=== PATIENT | male | born 1935 | race Caucasian/White ===

== ENCOUNTER 2017-06-28 16:19 | Emergency (ER) | payer MEDICARE, OTHER ==
[~2017-06-28] VITALS: Ht 182.9 cm; Wt 102.0 kg
[~2017-06-28 16:19] MED LIST: ALBU8.5H8 IH; ASPI81TA30 PO; ATOR20TA PO; FLUT1DIS4 INH; FURO-149 PO; METO25TA6 PO; OMEP-50 PO; OSEL30CA PO; PRE5T; RANI150C4 PO; SPIIN INH
[2017-06-28] MEDS ORDERED: NYSPWD TP (17:35)
[2017-06-28 17:41] VITALS: BP 112/62
== END 2017-06-28 17:42 | disposition home or self-care (01) ==
LOC: ER 16:20
DX: T85.9XXA Unspecified complication of internal prosthetic device, implant and graft, initial encounter (principal); E78.00 Pure hypercholesterolemia, unspecified; I10 Essential (primary) hypertension; Z79.82 Long term (current) use of aspirin
CPT/HCPCS: 99284; A4315

== ENCOUNTER 2017-07-26 05:19 | Emergency (ER) | payer MEDICARE, OTHER ==
[~2017-07-26] VITALS: Ht 185.4 cm; Wt 101.1 kg
[~2017-07-26 05:19] MED LIST changes: +NYSPWD TP
[2017-07-26 09:29] LABS: COLOR,URINE Yellow (Yellow); GLUCOSE, URINE Negative (Neg); KETONES,URINE Negative (Neg); LEUKOCYTE ESTERASE ,URINE Moderate (Neg); NITRITES, URINE Positive (Neg); OCCULT BLOOD,URINE Moderate (Neg); PROTEIN,URINE 100 mg/dl (Neg)
[2017-07-26 09:31] LABS: CLARITY,URINE CLOUDY (Clear); UA COLLECTION TYPE FOLEY CATH
[2017-07-26 09:42] LABS: BACTERIA,URINE 3+ /HPF (Neg); SQUAMOUS EPITHELIAL CELL,UR NONE SEEN /LPF (FEW); WBC CLUMPS,URINE MODERATE /HPF (NEGATIVE); WBC,URINE 50-100 /HPF (0-4)
[2017-07-26] MEDS ORDERED: CLOT15CR73 TP (10:23)
[2017-07-26] MEDS ORDERED: CEPH-572 PO (10:23)
[2017-07-26 10:43] VITALS: BP 145/65
== END 2017-07-26 10:45 | disposition home or self-care (01) ==
LOC: ER 05:20
DX: T83.9XXA Unspecified complication of genitourinary prosthetic device, implant and graft, initial encounter (principal); T83.511A Infection and inflammatory reaction due to indwelling urethral catheter, initial encounter; N39.0 Urinary tract infection, site not specified; B37.2 Candidiasis of skin and nail; E78.00 Pure hypercholesterolemia, unspecified; I11.0 Hypertensive heart disease with heart failure; I25.2 Old myocardial infarction; I50.9 Heart failure, unspecified; Z79.899 Other long term (current) drug therapy
CPT/HCPCS: 81001; 87077; 87088; 87186; 99284; A4310; A4344

== ENCOUNTER 2018-02-05 12:04 | Inpatient (IN) | payer MEDICARE, OTHER ==
[~2018-02-05] VITALS: Ht 188 cm; Wt 101.3 kg
[~2018-02-05 12:04] MED LIST changes: +CLOT15CR73 TP
[2018-02-05] MEDS ORDERED: normal saline 1000ML IV soln IVB ONE (12:25)
[2018-02-05] MEDS ORDERED: diltiazem 30mg tablet PO ONE (12:35)
[2018-02-05] MEDS ORDERED: diltiazem 5mg/ml 5ml inj. IV ONE (12:50)
[2018-02-05 13:05] LABS: BASOPHILS # (AUTO) 0.2 X10'3 (0-0.2); BASOPHILS % (AUTO) 1.5 % (0-1); EOSINOPHILS # (AUTO) 0.2 X10'3 (0-0.9); EOSINOPHILS % (AUTO) 1.1 % (0-6); HEMATOCRIT 36.2 % (42.0-52.0); LYMPHOCYTES # (AUTO) 0.7 X10'3 (1.1-4.8); LYMPHOCYTES % (AUTO) 4.3 % (21-51); MEAN CORPUSCULAR HEMOGLOBIN 30.3 PG (27.0-31.0); MEAN CORPUSCULAR VOLUME 91.6 FL (78-98); MEAN PLATELET VOLUME 8.5 FL (7.4-10.4); MONOCYTES # (AUTO) 1.5 X10'3 (0-0.9); MONOCYTES % (AUTO) 10.1 % (2-12); NEUTROPHILS # (AUTO) 12.6 X10'3 (1.8-7.7); PLATELET COUNT 259 X10'3 (140-440); RED BLOOD COUNT 3.95 X10'6 (4.70-6.10); RED CELL DISTRIBUTION WIDTH 13.7 % (11.5-14.5); WHITE BLOOD COUNT 15.2 X10'3 (4.5-11.0)
[2018-02-05 13:13] LABS: ALANINE AMINOTRANSFERASE 25 U/L (12-78); ALBUMIN 2.9 G/DL (3.4-5.0); ALBUMIN/GLOBULIN RATIO 0.7 (1.1-1.5); ALKALINE PHOSPHATASE 75 IU/L (46-116); ANION GAP 10 (8-16); ASPARTATE AMINO TRANSFERASE 18 U/L (10-37); BLOOD UREA NITROGEN 35 MG/DL (7-18); BUN/CREATININE RATIO 13.8 (5.4-32.0); CALCIUM 8.4 MG/DL (8.5-10.1); CHLORIDE 102 MMOL/L (99-107); CREATININE 2.54 MG/DL (0.60-1.10); GLUCOSE 115 MG/DL (70-104); POTASSIUM 3.9 MMOL/L (3.5-5.1); SODIUM 137 MMOL/L (135-145); TOTAL CARBON DIOXIDE 25.1 MMOL/L (24-32); TOTAL PROTEIN 6.8 G/DL (6.4-8.2); eGFR 24 ML/MIN
[2018-02-05 13:36] LABS: D-DIMER 1.88 MG/L FEU (0-0.50)
[2018-02-05] MEDS ORDERED: CefTRIAXone 2gm/D5W 50ml 50 ML IV ONE (13:50)
[2018-02-05] MEDS ORDERED: azithromycin/NS 500mg/250ml 250 ML IV ONE (13:50)
[2018-02-05] MEDS ORDERED: heparin 10,000 units/1 ML INJ IV PRN ×2 (13:50→14:55)
[2018-02-05] MEDS ORDERED: heparin 10,000 units/1 ML INJ IV ONE ×2 (13:50→14:55)
[2018-02-05] MEDS ORDERED: acetaminophen 325mg tablet PO PRN (14:55)
[2018-02-05] MEDS ORDERED: magnesium hydroxide 30ml (MOM) UD suspension PO PRN (14:55)
[2018-02-05] MEDS ORDERED: magnesium Cl slow-release 64mg tablet PO PRN (14:55)
[2018-02-05] MEDS ORDERED: ondansetron/PF 4mg/2ml inj IV PRN (14:55)
[2018-02-05] MEDS ORDERED: magnesium 4gm in 100ml NS 100 ML IV PRN (14:55)
[2018-02-05] MEDS ORDERED: potassium Cl 20 mEq SR tablet PO PRN ×2 (14:55)
[2018-02-05] MEDS ORDERED: potassium Cl 40MEQ/NS 500ml 500 ML IV PRN ×2 (14:55)
[2018-02-05] MEDS ORDERED: ipratropium/albuterol 3ml nebule NEB PRN ×2 (14:55→20:00)
[2018-02-05] MEDS ORDERED: magnesium 1gm/100ml D5W IVPB 100 ML IV PRN (14:55)
[2018-02-05 15:29] LABS: INR 1.1 INR; PROTHROMBIN TIME 11.2 SECONDS (9.0-12.0)
[2018-02-05] MEDS: normal saline 1000ml 1,000 ML IV SCH (15:42)
[2018-02-05 19:00] VITALS: BP 121/45
[2018-02-05] MEDS ORDERED: FLO0.4C PO (19:10)
[2018-02-05] MEDS ORDERED: MULT-1180 (19:11)
[2018-02-05] MEDS ORDERED: CALC1TAB PO (19:48)
[2018-02-05] MEDS ORDERED: CHOL100046 PO (19:48)
[2018-02-05] MEDS ORDERED: CYAN-19 PO (19:48)
[2018-02-05] MEDS ORDERED: FURO-150 PO (19:48)
[2018-02-05] MEDS ORDERED: VITE1000C PO (19:49)
[2018-02-05] MEDS: mag hydrox/Alum hydrox/simeth 30ml oral suspension PO PRN (19:52)
[2018-02-05] MEDS: famotidine 20mg tablet PO SCH (20:00)
[2018-02-05] MEDS: furosemide 20MG tablet PO SCH (20:00)
[2018-02-05] MEDS ORDERED: albuterol 2.5 MG/3 ML nebule NEB PRN (20:20)
[2018-02-05] MEDS ORDERED: temazepam 15mg capsule PO PRN (21:00)
[2018-02-05] MEDS: ipratropium/albuterol 3ml nebule NEB SCH (22:31)
[2018-02-05 23:00] VITALS: BP 140/46
[2018-02-05] MEDS: acetaminophen 325mg tablet PO PRN (23:02)
[2018-02-06] MEDS: normal saline 1000ml 1,000 ML IV SCH ×2 (00:53→11:03)
[2018-02-06 03:00] VITALS: BP 127/54
[2018-02-06] MEDS: ipratropium/albuterol 3ml nebule NEB SCH ×6 (03:00→23:26)
[2018-02-06 06:00] VITALS: BP 130/74
[2018-02-06 06:28] LABS: BASOPHILS % (AUTO) 0 % (0-1); EOSINOPHILS # (AUTO) 0.4 X10'3 (0-0.9); EOSINOPHILS % (AUTO) 4.2 % (0-6); HEMATOCRIT 28.4 % (42.0-52.0); HEMOGLOBIN 9.6 g/dl (14.0-17.9); LYMPHOCYTES # (AUTO) 0.8 X10'3 (1.1-4.8); LYMPHOCYTES % (AUTO) 7.7 % (21-51); MEAN CORPUSCULAR HEMOGLOBIN 30.3 PG (27.0-31.0); MEAN CORPUSCULAR HGB CONC 33.7 % (33.0-36.5); MEAN PLATELET VOLUME 7.6 FL (7.4-10.4); MONOCYTES % (AUTO) 9.8 % (2-12); NEUTROPHILS # (AUTO) 8.2 X10'3 (1.8-7.7); NEUTROPHILS % (AUTO) 78.3 % (42-75); PLATELET COUNT 202 X10'3 (140-440); RED BLOOD COUNT 3.15 X10'6 (4.70-6.10); RED CELL DISTRIBUTION WIDTH 14.6 % (11.5-14.5); WHITE BLOOD COUNT 10.4 X10'3 (4.5-11.0)
[2018-02-06 06:49] LABS: ANION GAP 10 (8-16); BILIRUBIN,TOTAL 0.4 MG/DL (0.1-1.0); BLOOD UREA NITROGEN 35 MG/DL (7-18); CALCIUM 7.7 MG/DL (8.5-10.1); CHLORIDE 108 MMOL/L (99-107); CREATININE 2.33 MG/DL (0.60-1.10); GLUCOSE 100 MG/DL (70-104); MAGNESIUM 1.8 MG/DL (1.5-2.4); POTASSIUM 3.5 MMOL/L (3.5-5.1); SODIUM 141 MMOL/L (135-145); TOTAL CARBON DIOXIDE 23.4 MMOL/L (24-32); TOTAL PROTEIN 5.4 G/DL (6.4-8.2); eGFR 27 ML/MIN
[2018-02-06 06:50] LABS: ALANINE AMINOTRANSFERASE 11 U/L (12-78); ALBUMIN 2.1 G/DL (3.4-5.0); ALBUMIN/GLOBULIN RATIO 0.6 (1.1-1.5); ALKALINE PHOSPHATASE 65 IU/L (46-116); ASPARTATE AMINO TRANSFERASE 10 U/L (10-37); CHOL/HDL RATIO 2.3 (0.00-4.99); CHOLESTEROL 87 MG/DL (0-200); HDL CHOLESTEROL 38 MG/DL (35-60); LDL CHOLESTEROL 41 MG/DL (50-100); TRIGLYCERIDES 44 MG/DL (20-135)
[2018-02-06] MEDS: BUDESONIDE 0.25 MG/2 ML AMPUL.NEB IH SCH ×2 (07:15→19:22)
[2018-02-06] MEDS: famotidine 20mg tablet PO SCH ×2 (07:28→20:13)
[2018-02-06] MEDS: aspirin 81mg tab.chew PO SCH (07:28)
[2018-02-06] MEDS: atorvastatin 20mg tablet PO SCH (07:28)
[2018-02-06] MEDS: furosemide 20MG tablet PO SCH ×2 (07:28→20:13)
[2018-02-06] MEDS: CefTRIAXone/D5W-Rocephin 1gm 50 ML IV SCH (07:46)
[2018-02-06] MEDS ORDERED: tamsulosin 0.4mg capsule PO SCH (08:00)
[2018-02-06] MEDS: K and/or MAG REPLACEMENT MC SCH (08:00)
[2018-02-06] MEDS ORDERED: non-formulary drug (Tiotropium Bromide (SPIRIVA inhaler) 1 CAP) INH SCH (08:00)
[2018-02-06 11:00] VITALS: BP 111/51
[2018-02-06] MEDS: azithromycin/NS 500mg/250ml 250 ML IV SCH (11:02)
[2018-02-06 15:00] VITALS: BP 130/60
[2018-02-06] MEDS: guaiFENesin/codeine phos 10ml UD oral syrup PO PRN ×2 (16:05→20:12)
[2018-02-06 19:00] VITALS: BP 160/71
[2018-02-06] MEDS: acetaminophen 325mg tablet PO PRN (20:13)
[2018-02-06] MEDS: tamsulosin 0.4mg capsule PO SCH (20:13)
[2018-02-06] MEDS: lactobacillus rhamnosus 10,000 MMU CELLS/CAPSULE PO SCH (20:14)
[2018-02-06 23:00] VITALS: BP 138/60
[2018-02-07] MEDS: guaiFENesin/codeine phos 10ml UD oral syrup PO PRN ×3 (01:56→20:47)
[2018-02-07 02:09] LABS: ALANINE AMINOTRANSFERASE 18 U/L (12-78); ALBUMIN 2.1 G/DL (3.4-5.0); ALBUMIN/GLOBULIN RATIO 0.6 (1.1-1.5); ALKALINE PHOSPHATASE 66 IU/L (46-116); ANION GAP 9 (8-16); ASPARTATE AMINO TRANSFERASE 20 U/L (10-37); BILIRUBIN,TOTAL 0.3 MG/DL (0.1-1.0); BLOOD UREA NITROGEN 32 MG/DL (7-18); BUN/CREATININE RATIO 14.7 (5.4-32.0); CALCIUM 7.8 MG/DL (8.5-10.1); CHLORIDE 108 MMOL/L (99-107); CREATININE 2.17 MG/DL (0.60-1.10); GLUCOSE 116 MG/DL (70-104); POTASSIUM 3.7 MMOL/L (3.5-5.1); SODIUM 141 MMOL/L (135-145); TOTAL CARBON DIOXIDE 23.9 MMOL/L (24-32); TOTAL PROTEIN 5.5 G/DL (6.4-8.2); eGFR 29 ML/MIN
[2018-02-07 02:15] LABS: BASOPHILS % (AUTO) 0.2 % (0-1); EOSINOPHILS # (AUTO) 0.3 X10'3 (0-0.9); EOSINOPHILS % (AUTO) 3.2 % (0-6); HEMATOCRIT 28.8 % (42.0-52.0); HEMOGLOBIN 9.5 g/dl (14.0-17.9); LYMPHOCYTES # (AUTO) 0.7 X10'3 (1.1-4.8); LYMPHOCYTES % (AUTO) 7.9 % (21-51); MEAN CORPUSCULAR HEMOGLOBIN 30.1 PG (27.0-31.0); MEAN CORPUSCULAR HGB CONC 32.9 % (33.0-36.5); MEAN CORPUSCULAR VOLUME 91.6 FL (78-98); MEAN PLATELET VOLUME 7.7 FL (7.4-10.4); MONOCYTES # (AUTO) 0.9 X10'3 (0-0.9); NEUTROPHILS # (AUTO) 7.4 X10'3 (1.8-7.7); NEUTROPHILS % (AUTO) 78.7 % (42-75); PLATELET COUNT 218 X10'3 (140-440); RED BLOOD COUNT 3.14 X10'6 (4.70-6.10); WHITE BLOOD COUNT 9.4 X10'3 (4.5-11.0)
[2018-02-07 03:00] VITALS: BP 122/53
[2018-02-07] MEDS: ipratropium/albuterol 3ml nebule NEB SCH ×6 (03:00→23:09)
[2018-02-07 06:00] VITALS: BP 134/58
[2018-02-07] MEDS: BUDESONIDE 0.25 MG/2 ML AMPUL.NEB IH SCH ×2 (07:41→19:34)
[2018-02-07] MEDS: K and/or MAG REPLACEMENT MC SCH (08:00)
[2018-02-07] MEDS: lactobacillus rhamnosus 10,000 MMU CELLS/CAPSULE PO SCH ×2 (08:04→20:47)
[2018-02-07] MEDS: famotidine 20mg tablet PO SCH ×2 (08:04→20:47)
[2018-02-07] MEDS: CefTRIAXone/D5W-Rocephin 1gm 50 ML IV SCH (08:04)
[2018-02-07] MEDS: aspirin 81mg tab.chew PO SCH (08:04)
[2018-02-07] MEDS: furosemide 20MG tablet PO SCH (08:04)
[2018-02-07] MEDS: atorvastatin 20mg tablet PO SCH (08:04)
[2018-02-07] MEDS: normal saline 1000ml 1,000 ML IV SCH (08:08)
[2018-02-07] MEDS: azithromycin/NS 500mg/250ml 250 ML IV SCH (09:49)
[2018-02-07 11:00] VITALS: BP 135/59
[2018-02-07 15:00] VITALS: BP 137/62
[2018-02-07 19:00] VITALS: BP 109/44
[2018-02-07] MEDS: tamsulosin 0.4mg capsule PO SCH (20:47)
[2018-02-07] MEDS: methylPREDNISolone sod succ/PF 40mg inj. IV SCH (20:53)
[2018-02-07 23:00] VITALS: BP 142/65
[2018-02-08 03:00] VITALS: BP 154/68
[2018-02-08] MEDS: ipratropium/albuterol 3ml nebule NEB SCH ×6 (03:00→23:11)
[2018-02-08 05:36] LABS: BASOPHILS % (AUTO) 0 % (0-1); EOSINOPHILS # (AUTO) 0.1 X10'3 (0-0.9); EOSINOPHILS % (AUTO) 1.2 % (0-6); HEMATOCRIT 31.8 % (42.0-52.0); HEMOGLOBIN 10.8 g/dl (14.0-17.9); LYMPHOCYTES # (AUTO) 0.2 X10'3 (1.1-4.8); LYMPHOCYTES % (AUTO) 2.2 % (21-51); MEAN CORPUSCULAR HEMOGLOBIN 30.6 PG (27.0-31.0); MEAN CORPUSCULAR HGB CONC 33.9 % (33.0-36.5); MEAN CORPUSCULAR VOLUME 90.3 FL (78-98); MEAN PLATELET VOLUME 7.5 FL (7.4-10.4); MONOCYTES # (AUTO) 0.1 X10'3 (0-0.9); MONOCYTES % (AUTO) 0.7 % (2-12); NEUTROPHILS % (AUTO) 95.9 % (42-75); PLATELET COUNT 237 X10'3 (140-440); RED BLOOD COUNT 3.52 X10'6 (4.70-6.10); RED CELL DISTRIBUTION WIDTH 14.7 % (11.5-14.5); WHITE BLOOD COUNT 8.3 X10'3 (4.5-11.0)
[2018-02-08 06:00] VITALS: BP 151/61
[2018-02-08 06:00] LABS: ALANINE AMINOTRANSFERASE 21 U/L (12-78); ALBUMIN 2.2 G/DL (3.4-5.0); ALBUMIN/GLOBULIN RATIO 0.6 (1.1-1.5); ALKALINE PHOSPHATASE 71 IU/L (46-116); ANION GAP 9 (8-16); ASPARTATE AMINO TRANSFERASE 12 U/L (10-37); BILIRUBIN,TOTAL 0.3 MG/DL (0.1-1.0); BLOOD UREA NITROGEN 32 MG/DL (7-18); CALCIUM 8.4 MG/DL (8.5-10.1); CHLORIDE 106 MMOL/L (99-107); CREATININE 2.14 MG/DL (0.60-1.10); GLUCOSE 186 MG/DL (70-104); MAGNESIUM 2.3 MG/DL (1.5-2.4); POTASSIUM 4.4 MMOL/L (3.5-5.1); SODIUM 139 MMOL/L (135-145); TOTAL CARBON DIOXIDE 24.1 MMOL/L (24-32); TOTAL PROTEIN 6.2 G/DL (6.4-8.2); eGFR 30 ML/MIN
[2018-02-08] MEDS: guaiFENesin/codeine phos 10ml UD oral syrup PO PRN ×3 (06:00→19:14)
[2018-02-08] MEDS: BUDESONIDE 0.25 MG/2 ML AMPUL.NEB IH SCH ×2 (06:57→19:47)
[2018-02-08] MEDS: K and/or MAG REPLACEMENT MC SCH (08:00)
[2018-02-08] MEDS: atorvastatin 20mg tablet PO SCH (09:10)
[2018-02-08] MEDS: azithromycin 250mg tablet PO SCH (09:10)
[2018-02-08] MEDS: famotidine 20mg tablet PO SCH ×2 (09:11→19:11)
[2018-02-08] MEDS: CefTRIAXone/D5W-Rocephin 1gm 50 ML IV SCH (09:11)
[2018-02-08] MEDS: lactobacillus rhamnosus 10,000 MMU CELLS/CAPSULE PO SCH ×2 (09:11→19:11)
[2018-02-08] MEDS: aspirin 81mg tab.chew PO SCH (09:11)
[2018-02-08] MEDS: methylPREDNISolone sod succ/PF 40mg inj. IV SCH ×2 (09:11→19:11)
[2018-02-08 11:00] VITALS: BP 133/54
[2018-02-08 15:00] VITALS: BP 137/60
[2018-02-08 19:00] VITALS: BP 138/68
[2018-02-08] MEDS: tamsulosin 0.4mg capsule PO SCH (21:00)
[2018-02-08 23:00] VITALS: BP 135/56
[2018-02-09 03:00] VITALS: BP 130/63
[2018-02-09] MEDS: ipratropium/albuterol 3ml nebule NEB SCH ×6 (03:00→22:51)
[2018-02-09 06:00] VITALS: BP 139/70
[2018-02-09 06:20] LABS: BASOPHILS % (AUTO) 0 % (0-1); EOSINOPHILS # (AUTO) 0.2 X10'3 (0-0.9); EOSINOPHILS % (AUTO) 1.6 % (0-6); HEMATOCRIT 30.7 % (42.0-52.0); HEMOGLOBIN 10.5 g/dl (14.0-17.9); LYMPHOCYTES # (AUTO) 0.2 X10'3 (1.1-4.8); LYMPHOCYTES % (AUTO) 2.2 % (21-51); MEAN CORPUSCULAR HEMOGLOBIN 30.8 PG (27.0-31.0); MEAN CORPUSCULAR HGB CONC 34.2 % (33.0-36.5); MEAN PLATELET VOLUME 7.1 FL (7.4-10.4); MONOCYTES # (AUTO) 0.3 X10'3 (0-0.9); MONOCYTES % (AUTO) 2.9 % (2-12); NEUTROPHILS # (AUTO) 9.6 X10'3 (1.8-7.7); NEUTROPHILS % (AUTO) 93.3 % (42-75); PLATELET COUNT 284 X10'3 (140-440); RED BLOOD COUNT 3.41 X10'6 (4.70-6.10); RED CELL DISTRIBUTION WIDTH 14.8 % (11.5-14.5); WHITE BLOOD COUNT 10.3 X10'3 (4.5-11.0)
[2018-02-09] MEDS: normal saline 1000ml 1,000 ML IV SCH (06:52)
[2018-02-09 07:10] LABS: ALANINE AMINOTRANSFERASE 29 U/L (12-78); ALBUMIN 2.3 G/DL (3.4-5.0); ALBUMIN/GLOBULIN RATIO 0.6 (1.1-1.5); ALKALINE PHOSPHATASE 73 IU/L (46-116); ANION GAP 11 (8-16); ASPARTATE AMINO TRANSFERASE 23 U/L (10-37); BILIRUBIN,TOTAL 0.2 MG/DL (0.1-1.0); BLOOD UREA NITROGEN 44 MG/DL (7-18); BUN/CREATININE RATIO 20.3 (5.4-32.0); CALCIUM 8.5 MG/DL (8.5-10.1); CHLORIDE 107 MMOL/L (99-107); CREATININE 2.17 MG/DL (0.60-1.10); GLUCOSE 164 MG/DL (70-104); MAGNESIUM 2.2 MG/DL (1.5-2.4); POTASSIUM 4.1 MMOL/L (3.5-5.1); SODIUM 140 MMOL/L (135-145); TOTAL CARBON DIOXIDE 22.3 MMOL/L (24-32); TOTAL PROTEIN 6.2 G/DL (6.4-8.2); eGFR 29 ML/MIN
[2018-02-09] MEDS: BUDESONIDE 0.25 MG/2 ML AMPUL.NEB IH SCH ×2 (07:52→19:02)
[2018-02-09] MEDS: K and/or MAG REPLACEMENT MC SCH (08:00)
[2018-02-09] MEDS: methylPREDNISolone sod succ/PF 40mg inj. IV SCH ×2 (08:24→20:44)
[2018-02-09] MEDS: famotidine 20mg tablet PO SCH ×2 (08:25→20:44)
[2018-02-09] MEDS: azithromycin 250mg tablet PO SCH (08:25)
[2018-02-09] MEDS: lactobacillus rhamnosus 10,000 MMU CELLS/CAPSULE PO SCH ×2 (08:25→20:44)
[2018-02-09] MEDS: aspirin 81mg tab.chew PO SCH (08:25)
[2018-02-09] MEDS: atorvastatin 20mg tablet PO SCH (08:25)
[2018-02-09] MEDS: CefTRIAXone/D5W-Rocephin 1gm 50 ML IV SCH (08:25)
[2018-02-09 11:00] VITALS: BP 137/62
[2018-02-09 15:00] VITALS: BP 139/60
[2018-02-09 18:00] VITALS: BP 133/51
[2018-02-09] MEDS: tamsulosin 0.4mg capsule PO SCH (20:44)
[2018-02-09] MEDS: guaiFENesin/codeine phos 10ml UD oral syrup PO PRN (20:50)
[2018-02-09 22:00] VITALS: BP 131/62
[2018-02-10 02:00] VITALS: BP 151/66
[2018-02-10] MEDS: ipratropium/albuterol 3ml nebule NEB SCH ×3 (03:00→10:13)
[2018-02-10] MEDS: mag hydrox/Alum hydrox/simeth 30ml oral suspension PO PRN (04:14)
[2018-02-10 06:00] VITALS: BP 128/62
[2018-02-10 06:31] LABS: BASOPHILS % (AUTO) 0 % (0-1); EOSINOPHILS # (AUTO) 0.2 X10'3 (0-0.9); EOSINOPHILS % (AUTO) 1.8 % (0-6); HEMATOCRIT 30.5 % (42.0-52.0); HEMOGLOBIN 10.2 g/dl (14.0-17.9); LYMPHOCYTES # (AUTO) 0.2 X10'3 (1.1-4.8); LYMPHOCYTES % (AUTO) 1.8 % (21-51); MEAN CORPUSCULAR HEMOGLOBIN 30.2 PG (27.0-31.0); MEAN CORPUSCULAR HGB CONC 33.6 % (33.0-36.5); MEAN CORPUSCULAR VOLUME 89.8 FL (78-98); MEAN PLATELET VOLUME 7.8 FL (7.4-10.4); MONOCYTES # (AUTO) 0.3 X10'3 (0-0.9); MONOCYTES % (AUTO) 2.4 % (2-12); PLATELET COUNT 294 X10'3 (140-440); RED BLOOD COUNT 3.39 X10'6 (4.70-6.10); RED CELL DISTRIBUTION WIDTH 14.8 % (11.5-14.5); WHITE BLOOD COUNT 11.7 X10'3 (4.5-11.0)
[2018-02-10] MEDS: CefTRIAXone/D5W-Rocephin 1gm 50 ML IV SCH ×2 (06:35→07:48)
[2018-02-10 07:04] LABS: ALANINE AMINOTRANSFERASE 50 U/L (12-78); ALBUMIN 2.3 G/DL (3.4-5.0); ALBUMIN/GLOBULIN RATIO 0.6 (1.1-1.5); ALKALINE PHOSPHATASE 67 IU/L (46-116); ANION GAP 11 (8-16); ASPARTATE AMINO TRANSFERASE 27 U/L (10-37); BILIRUBIN,TOTAL 0.2 MG/DL (0.1-1.0); BLOOD UREA NITROGEN 56 MG/DL (7-18); BUN/CREATININE RATIO 24.3 (5.4-32.0); CALCIUM 8.4 MG/DL (8.5-10.1); CHLORIDE 107 MMOL/L (99-107); GLUCOSE 164 MG/DL (70-104); MAGNESIUM 2.4 MG/DL (1.5-2.4); POTASSIUM 4.5 MMOL/L (3.5-5.1); SODIUM 140 MMOL/L (135-145); TOTAL PROTEIN 5.9 G/DL (6.4-8.2); eGFR 27 ML/MIN
[2018-02-10] MEDS: aspirin 81mg tab.chew PO SCH (07:50)
[2018-02-10] MEDS: atorvastatin 20mg tablet PO SCH (07:50)
[2018-02-10] MEDS: lactobacillus rhamnosus 10,000 MMU CELLS/CAPSULE PO SCH (07:50)
[2018-02-10] MEDS: famotidine 20mg tablet PO SCH (07:51)
[2018-02-10] MEDS: methylPREDNISolone sod succ/PF 40mg inj. IV SCH (07:51)
[2018-02-10] MEDS: azithromycin 250mg tablet PO SCH (07:51)
[2018-02-10] MEDS: K and/or MAG REPLACEMENT MC SCH (08:00)
[2018-02-10] MEDS: BUDESONIDE 0.25 MG/2 ML AMPUL.NEB IH SCH (08:52)
== END 2018-02-10 14:00 | DRG 193 ==
LOC: ER 12:04 → ED HOLD 14:52 → PCU 3S 17:25 → CMPBEDREQ 19:37
PROVIDERS: ADMIT Family Medicine; ATTEND Family Medicine
DX: J18.9 Pneumonia, unspecified organism (principal); J96.00 Acute respiratory failure, unspecified whether with hypoxia or hypercapnia; I13.0 Hypertensive heart and chronic kidney disease with heart failure and stage 1 through stage 4 chronic kidney disease, or unspecified chronic kidney disease; J44.0 Chronic obstructive pulmonary disease with (acute) lower respiratory infection; J44.1 Chronic obstructive pulmonary disease with (acute) exacerbation; N17.9 Acute kidney failure, unspecified; E78.00 Pure hypercholesterolemia, unspecified; E78.5 Hyperlipidemia, unspecified; I25.10 Atherosclerotic heart disease of native coronary artery without angina pectoris; I48.0 Paroxysmal atrial fibrillation; I50.9 Heart failure, unspecified; D64.9 Anemia, unspecified; I77.89 Other specified disorders of arteries and arterioles; N18.9 Chronic kidney disease, unspecified; Z60.2 Problems related to living alone; I25.2 Old myocardial infarction; Z79.899 Other long term (current) drug therapy; Z87.891 Personal history of nicotine dependence
CPT/HCPCS: 36415; 71046; 71250; 78582; 80053; 80061; 83605; 83735; 83880; 84145; 85025; 85379; 85610; 85730; 87070; 93005; 93306; 94640; 94760; 96361; 96365; 97116; 97162; 97530; 99285; A6212; A6213; A9539; A9540; J0456; J0696; J1644; J2920; J7030

== ENCOUNTER 2018-05-02 20:41 | Emergency (ER) | payer MEDICARE, OTHER ==
[~2018-05-02] VITALS: Ht 185.4 cm; Wt 100.0 kg
[~2018-05-02 20:41] MED LIST changes: +CALC1TAB PO; +CHOL100046 PO; -CLOT15CR73 TP; +CYAN-19 PO; +FLO0.4C PO; -FURO-149 PO; +FURO-150 PO; -METO25TA6 PO; +MULT-1180; -NYSPWD TP; -OMEP-50 PO; -OSEL30CA PO; +VITE1000C PO
[2018-05-02] MEDS ORDERED: BUPIVAcaine 0.5% inj/PF 30 ml vial IJ ONE (20:55)
[2018-05-02] MEDS ORDERED: acetaminophen 325mg tablet PO ONE (22:05)
[2018-05-03 04:55] VITALS: BP 137/61
== END 2018-05-03 05:04 | disposition home or self-care (01) ==
LOC: ER 20:42
DX: S22.42XA Multiple fractures of ribs, left side, initial encounter for closed fracture (principal); M23.92 Unspecified internal derangement of left knee; M25.462 Effusion, left knee; E78.00 Pure hypercholesterolemia, unspecified; I10 Essential (primary) hypertension; I25.2 Old myocardial infarction; Z95.5 Presence of coronary angioplasty implant and graft; Z79.82 Long term (current) use of aspirin; Z79.899 Other long term (current) drug therapy; W19.XXXA Unspecified fall, initial encounter; Y93.01 Activity, walking, marching and hiking; Y92.89 Other specified places as the place of occurrence of the external cause; Y99.9 Unspecified external cause status
CPT/HCPCS: 20610; 71250; 73564; 99284

== ENCOUNTER 2018-11-19 14:47 | Inpatient (IN) | payer MEDICARE, OTHER ==
[~2018-11-19] VITALS: Ht 182.9 cm; Wt 95.9 kg
[2018-11-19] MEDS ORDERED: acetaminophen 325mg tablet PO ONE (15:00)
[2018-11-19 15:48] LABS: BASOPHILS # (AUTO) 0.1 X10'3 (0-0.2); BASOPHILS % (AUTO) 0.5 % (0-1); EOSINOPHILS # (AUTO) 0.2 X10'3 (0-0.9); HEMATOCRIT 34.7 % (42.0-52.0); HEMOGLOBIN 11.5 g/dl (14.0-17.9); LYMPHOCYTES # (AUTO) 0.7 X10'3 (1.1-4.8); LYMPHOCYTES % (AUTO) 6.6 % (21-51); MEAN CORPUSCULAR HEMOGLOBIN 29.8 PG (27.0-31.0); MEAN CORPUSCULAR HGB CONC 33.2 g/dL (33.0-36.5); MEAN CORPUSCULAR VOLUME 89.7 FL (78-98); MEAN PLATELET VOLUME 7.1 FL (7.4-10.4); MONOCYTES # (AUTO) 0.7 X10'3 (0-0.9); NEUTROPHILS # (AUTO) 8.7 X10'3 (1.8-7.7); NEUTROPHILS % (AUTO) 83.9 % (42-75); PLATELET COUNT 248 X10'3 (140-440); RED BLOOD COUNT 3.87 X10'6 (4.70-6.10); RED CELL DISTRIBUTION WIDTH 14.4 % (11.5-14.5); WHITE BLOOD COUNT 10.3 X10'3 (4.5-11.0)
[2018-11-19 15:49] LABS: CLARITY,URINE CLOUDY (Clear); COLOR,URINE STRAW (Yellow); GLUCOSE, URINE NEGATIVE (Neg); KETONES,URINE NEGATIVE (Neg); LEUKOCYTE ESTERASE ,URINE SMALL (Neg); NITRITES, URINE NEGATIVE (Neg); OCCULT BLOOD,URINE MODERATE (Neg); PH,URINE 5.5 (4.8-8.0); PROTEIN,URINE 100 mg/dl (Neg); UROBILINOGEN,URINE 0.2 E.U/dL (0.2-1.0)
[2018-11-19 15:51] LABS: UA COLLECTION TYPE CLN CATCH MIDSTREAM
[2018-11-19 15:55] LABS: WBC,URINE TNTC /HPF (0-4)
[2018-11-19 15:56] LABS: BACTERIA,URINE FEW /HPF (Neg); MUCUS STRANDS NONE SEEN /LPF (Neg); SQUAMOUS EPITHELIAL CELL,UR FEW /LPF (FEW)
[2018-11-19 16:05] LABS: PARTIAL THROMBOPLASTIN TIME 30 SECONDS (22-32)
[2018-11-19 16:16] LABS: ALANINE AMINOTRANSFERASE 26 U/L (12-78); ALBUMIN/GLOBULIN RATIO 0.8 (1.1-1.5); ALKALINE PHOSPHATASE 108 IU/L (46-116); AMYLASE 48 U/L (25-115); ANION GAP 9 (8-16); ASPARTATE AMINO TRANSFERASE 17 U/L (10-37); BILIRUBIN,TOTAL 0.3 MG/DL (0.1-1.0); BLOOD UREA NITROGEN 38 MG/DL (7-18); BUN/CREATININE RATIO 17.4 (5.4-32.0); CALCIUM 8.2 MG/DL (8.5-10.1); CHLORIDE 107 MMOL/L (99-107); CREATININE 2.19 MG/DL (0.60-1.10); GLUCOSE 103 MG/DL (70-104); LIPASE 52 U/L (73-393); POTASSIUM 4.4 MMOL/L (3.5-5.1); SODIUM 140 MMOL/L (135-145); TOTAL CARBON DIOXIDE 23.6 MMOL/L (24-32); TOTAL PROTEIN 6.9 G/DL (6.4-8.2); eGFR 29 ML/MIN
[2018-11-19] MEDS ORDERED: CefTRIAXone 2gm/D5W 50ml 50 ML IV ONE (17:00)
[2018-11-19] MEDS ORDERED: normal saline 1000ML IV soln IVB ONE ×2 (17:00→17:40)
[2018-11-19] MEDS ORDERED: azithromycin/NS 500mg/250ml 250 ML IV ONE (17:00)
--- NOTE | 2018-11-19 17:44 | NUR ---
PT CLEANED, REFUSED TO USE URINAL REFUSED TO SIT ON SIDE OF THE BED AND STATES CANNOT STAND.
[2018-11-19] MEDS ORDERED: magnesium hydroxide 30ml (MOM) UD suspension PO PRN (18:55)
[2018-11-19] MEDS ORDERED: acetaminophen 325mg tablet PO PRN (18:55)
[2018-11-19] MEDS ORDERED: potassium Cl 40MEQ/NS 500ml 500 ML IV PRN (18:55)
[2018-11-19] MEDS ORDERED: mag hydrox/Alum hydrox/simeth 30ml oral suspension PO PRN (18:55)
[2018-11-19] MEDS ORDERED: diphenhydrAMINE 50 mg/ml inj IV PRN (18:55)
[2018-11-19] MEDS ORDERED: potassium Cl 20 mEq SR tablet PO PRN ×2 (18:55)
[2018-11-19] MEDS ORDERED: magnesium 4gm in 100ml NS 100 ML IV PRN (18:55)
[2018-11-19] MEDS ORDERED: magnesium Cl slow-release 64mg tablet PO PRN (18:55)
[2018-11-19] MEDS ORDERED: bisacodyl 10mg suppository rectal RC PRN (18:55)
[2018-11-19] MEDS ORDERED: HYDROcodone/acetaminophen 5mg/325mg tablet PO PRN (18:55)
[2018-11-19] MEDS ORDERED: morphine 2 MG/ML inj. syringe IV PRN ×2 (18:55)
[2018-11-19] MEDS ORDERED: potassium CL 10mEq/100ml bag 100 ML IV PRN (18:55)
[2018-11-19] MEDS ORDERED: diphenhydrAMINE 25mg capsule PO PRN (18:55)
[2018-11-19] MEDS ORDERED: ondansetron/PF 4mg/2ml inj IV PRN (18:55)
[2018-11-19] MEDS ORDERED: HYDROcodone/acetaminophen 10/325mg tab PO PRN (18:55)
[2018-11-19] MEDS ORDERED: magnesium 2GM in 50ml NS 50 ML IV PRN (18:55)
[2018-11-19] MEDS ORDERED: acetaminophen 650mg rectal suppository RC PRN (18:55)
[2018-11-19 19:22] LABS: HEMOGLOBIN A1C 6.1 % (4.5-6.2)
[2018-11-19] MEDS: furosemide 20MG tablet PO SCH (20:00)
[2018-11-19] MEDS ORDERED: non-formulary drug (Fluticasone/Salmeterol (Advair 250-50 Diskus) 1 PUFFS) INH SCH (20:00)
--- NOTE | 2018-11-19 20:05 | NUR ---
REGISTERATION AT THE BEDSIDE TO COLLECT THE VALUABLE BELONGING PLACED IN SAFE.
[2018-11-19] MEDS: famotidine 20mg tablet PO SCH (20:14)
[2018-11-19] MEDS: heparin, porcine 5000 units/ml vial SQ SCH (20:14)
[2018-11-19] MEDS: ipratropium 0.5 MG/2.5ML nebule NEB SCH (21:00)
[2018-11-19] MEDS: budesonide 0.5mg/2ml UD nebule IH SCH (21:00)
[2018-11-19] MEDS ORDERED: temazepam 15mg capsule PO PRN (21:00)
[2018-11-19 22:00] VITALS: BP 128/54
[2018-11-19] MEDS: K and/or MAG REPLACEMENT MC SCH (22:00)
[2018-11-19] MEDS: normal saline 1000ml 1,000 ML IV SCH (22:12)
[2018-11-19] MEDS: albuterol 2.5 MG/3 ML nebule NEB SCH (23:00)
[2018-11-20 03:00] VITALS: BP 128/58
[2018-11-20] MEDS: ipratropium 0.5 MG/2.5ML nebule NEB SCH ×4 (03:00→19:16)
[2018-11-20] MEDS: albuterol 2.5 MG/3 ML nebule NEB SCH ×6 (03:00→23:21)
[2018-11-20] MEDS: normal saline 1000ml 1,000 ML IV SCH ×3 (04:54→23:05)
[2018-11-20 05:41] LABS: BASOPHILS % (AUTO) 0.2 % (0-1); EOSINOPHILS % (AUTO) 0.4 % (0-6); HEMATOCRIT 30.8 % (42.0-52.0); LYMPHOCYTES # (AUTO) 1.5 X10'3 (1.1-4.8); LYMPHOCYTES % (AUTO) 12.2 % (21-51); MEAN CORPUSCULAR HEMOGLOBIN 29.3 PG (27.0-31.0); MEAN CORPUSCULAR HGB CONC 32.6 g/dL (33.0-36.5); MEAN CORPUSCULAR VOLUME 89.9 FL (78-98); MEAN PLATELET VOLUME 7.3 FL (7.4-10.4); MONOCYTES % (AUTO) 8.3 % (2-12); NEUTROPHILS # (AUTO) 9.4 X10'3 (1.8-7.7); NEUTROPHILS % (AUTO) 78.9 % (42-75); PLATELET COUNT 221 X10'3 (140-440); RED BLOOD COUNT 3.43 X10'6 (4.70-6.10); RED CELL DISTRIBUTION WIDTH 14.2 % (11.5-14.5); WHITE BLOOD COUNT 11.9 X10'3 (4.5-11.0)
[2018-11-20 05:57] LABS: ALANINE AMINOTRANSFERASE 23 U/L (12-78); ALBUMIN 2.4 G/DL (3.4-5.0); ALBUMIN/GLOBULIN RATIO 0.7 (1.1-1.5); ALKALINE PHOSPHATASE 88 IU/L (46-116); ANION GAP 6 (8-16); ASPARTATE AMINO TRANSFERASE 16 U/L (10-37); BILIRUBIN,TOTAL 0.4 MG/DL (0.1-1.0); BLOOD UREA NITROGEN 34 MG/DL (7-18); CALCIUM 7.9 MG/DL (8.5-10.1); CHLORIDE 109 MMOL/L (99-107); CREATININE 2.12 MG/DL (0.60-1.10); GLUCOSE 90 MG/DL (70-104); SODIUM 141 MMOL/L (135-145); TOTAL CARBON DIOXIDE 25.6 MMOL/L (24-32); TOTAL PROTEIN 5.7 G/DL (6.4-8.2); eGFR 30 ML/MIN
[2018-11-20 05:59] LABS: CHOLESTEROL 96 MG/DL (0-200); HDL CHOLESTEROL 32 MG/DL (35-60); LDL CHOLESTEROL 54 MG/DL (50-100); MAGNESIUM 1.7 MG/DL (1.5-2.4); PHOSPHORUS 3.2 MG/DL (2.3-4.5); TRIGLYCERIDES 76 MG/DL (20-135)
--- NOTE | 2018-11-20 06:27 | NUR ---
Patient in room PCU 3015. I have received report from Wen STRICKLAND and had the opportunity to ask questions and assume patient care.
[2018-11-20] MEDS: K and/or MAG REPLACEMENT MC SCH (06:58)
[2018-11-20 07:00] VITALS: BP 116/48
[2018-11-20] MEDS: calcium carbonate/vitamin D3 tablet PO SCH (07:39)
[2018-11-20] MEDS: aspirin 81mg tablet.DR PO SCH (07:40)
[2018-11-20] MEDS: CefTRIAXone/D5W-Rocephin 1gm 50 ML IV SCH (07:40)
[2018-11-20] MEDS: heparin, porcine 5000 units/ml vial SQ SCH ×2 (07:40→20:26)
[2018-11-20] MEDS: tamsulosin 0.4mg capsule PO SCH (07:41)
[2018-11-20] MEDS: vitamin D (cholecalciferol) 1,000 unit tablet PO SCH (07:41)
[2018-11-20] MEDS: furosemide 20MG tablet PO SCH ×2 (07:41→20:27)
[2018-11-20] MEDS: atorvastatin 20mg tablet PO SCH (07:41)
[2018-11-20] MEDS: azithromycin 250mg tablet PO SCH (07:41)
[2018-11-20] MEDS: famotidine 20mg tablet PO SCH ×2 (07:41→20:27)
[2018-11-20] MEDS: budesonide 0.5mg/2ml UD nebule IH SCH ×2 (07:55→19:16)
[2018-11-20] MEDS: acetaminophen 325mg tablet PO PRN ×2 (09:01→20:38)
[2018-11-20 11:00] VITALS: BP 105/47
[2018-11-20 15:00] VITALS: BP 121/54
--- NOTE | 2018-11-20 18:15 | NUR ---
Patient in room PCU 3015. I have received report from Alba STRICKLAND and had the opportunity to ask questions and assume patient care. Patient resting with no immediate needs, will continue to monitor.
--- NOTE | 2018-11-20 18:17 | NUR ---
Problems reprioritized. Patient report given, questions answered & plan of care reviewed with Marta STRICKLAND. Patient stable at transfer of care.
[2018-11-20 19:00] VITALS: BP 142/59
--- NOTE | 2018-11-20 22:35 | NUR ---
Patient's IV was pulled out by BP cuff. He refuses to have a new IV started tonight, he wants to rest and wait until AM. Addendum: 11/21/18 at 0016 by Mary Cleveland RN New IV started 22g. right wrist.
[2018-11-20 23:00] VITALS: BP 135/61
[2018-11-21 03:00] VITALS: BP 139/62
[2018-11-21] MEDS: albuterol 2.5 MG/3 ML nebule NEB SCH ×6 (03:00→23:26)
[2018-11-21] MEDS: ipratropium 0.5 MG/2.5ML nebule NEB SCH ×4 (03:00→20:24)
[2018-11-21 05:10] LABS: BASOPHILS % (AUTO) 0.2 % (0-1); EOSINOPHILS # (AUTO) 0.3 X10'3 (0-0.9); HEMATOCRIT 30.6 % (42.0-52.0); HEMOGLOBIN 10.1 g/dl (14.0-17.9); LYMPHOCYTES # (AUTO) 1.5 X10'3 (1.1-4.8); LYMPHOCYTES % (AUTO) 20.4 % (21-51); MEAN CORPUSCULAR HEMOGLOBIN 29.7 PG (27.0-31.0); MEAN CORPUSCULAR VOLUME 89.9 FL (78-98); MONOCYTES # (AUTO) 0.8 X10'3 (0-0.9); MONOCYTES % (AUTO) 10.1 % (2-12); NEUTROPHILS # (AUTO) 4.9 X10'3 (1.8-7.7); NEUTROPHILS % (AUTO) 65.3 % (42-75); PLATELET COUNT 206 X10'3 (140-440); RED CELL DISTRIBUTION WIDTH 14.5 % (11.5-14.5); WHITE BLOOD COUNT 7.5 X10'3 (4.5-11.0)
[2018-11-21 05:31] LABS: ALANINE AMINOTRANSFERASE 20 U/L (12-78); ALBUMIN 2.3 G/DL (3.4-5.0); ALBUMIN/GLOBULIN RATIO 0.7 (1.1-1.5); ALKALINE PHOSPHATASE 84 IU/L (46-116); ANION GAP 5 (8-16); ASPARTATE AMINO TRANSFERASE 17 U/L (10-37); BILIRUBIN,TOTAL 0.2 MG/DL (0.1-1.0); BLOOD UREA NITROGEN 31 MG/DL (7-18); BUN/CREATININE RATIO 14.7 (5.4-32.0); CALCIUM 8.3 MG/DL (8.5-10.1); CHLORIDE 109 MMOL/L (99-107); CREATININE 2.11 MG/DL (0.60-1.10); GLUCOSE 92 MG/DL (70-104); MAGNESIUM 1.8 MG/DL (1.5-2.4); SODIUM 141 MMOL/L (135-145); TOTAL CARBON DIOXIDE 26.7 MMOL/L (24-32); TOTAL PROTEIN 5.8 G/DL (6.4-8.2); eGFR 30 ML/MIN
--- NOTE | 2018-11-21 06:11 | NUR ---
Problems reprioritized. Patient report given, questions answered & plan of care reviewed with Alba STRICKLAND and Sonia STRICKLAND.
--- NOTE | 2018-11-21 06:33 | NUR ---
Patient in room PCU 3015. I have received report from Marta STRICKLAND and had the opportunity to ask questions and assume patient care.
[2018-11-21 07:00] VITALS: BP 153/69
[2018-11-21] MEDS: K and/or MAG REPLACEMENT MC SCH (07:02)
[2018-11-21] MEDS: CefTRIAXone/D5W-Rocephin 1gm 50 ML IV SCH (07:40)
[2018-11-21] MEDS: heparin, porcine 5000 units/ml vial SQ SCH ×2 (07:43→20:09)
[2018-11-21] MEDS: tamsulosin 0.4mg capsule PO SCH (07:43)
[2018-11-21] MEDS: calcium carbonate/vitamin D3 tablet PO SCH (07:43)
[2018-11-21] MEDS: aspirin 81mg tablet.DR PO SCH (07:44)
[2018-11-21] MEDS: famotidine 20mg tablet PO SCH ×2 (07:45→20:09)
[2018-11-21] MEDS: azithromycin 250mg tablet PO SCH (07:45)
[2018-11-21] MEDS: atorvastatin 20mg tablet PO SCH (07:45)
[2018-11-21] MEDS: furosemide 20MG tablet PO SCH ×2 (07:45→20:10)
[2018-11-21] MEDS: vitamin D (cholecalciferol) 1,000 unit tablet PO SCH (07:52)
[2018-11-21] MEDS: budesonide 0.5mg/2ml UD nebule IH SCH ×2 (07:56→20:24)
[2018-11-21 11:42] VITALS: BP 144/64
[2018-11-21 15:00] VITALS: BP 139/59
[2018-11-21 18:00] VITALS: BP 131/74
--- NOTE | 2018-11-21 18:17 | NUR ---
Problems reprioritized. Patient report given, questions answered & plan of care reviewed with Marta STRICKLAND. Patient stable at transfer of care.
--- NOTE | 2018-11-21 18:26 | NUR ---
Patient in room PCU 3015. I have received report from Alba STRICKLAND and Merlin RN and had the opportunity to ask questions and assume patient care. Patient resting with no immediate needs. Will continue to monitor.
[2018-11-21] MEDS: lactobacillus rhamnosus 10,000 MMU CELLS/CAPSULE PO SCH (20:09)
[2018-11-21] MEDS: acetaminophen 325mg tablet PO PRN (21:48)
[2018-11-21 23:00] VITALS: BP 117/66
[2018-11-22] MEDS: ipratropium 0.5 MG/2.5ML nebule NEB SCH ×4 (02:34→19:54)
[2018-11-22] MEDS: albuterol 2.5 MG/3 ML nebule NEB SCH ×6 (02:34→23:26)
[2018-11-22 03:00] VITALS: BP 138/63
[2018-11-22 05:26] LABS: BASOPHILS % (AUTO) 0.3 % (0-1); EOSINOPHILS # (AUTO) 0.6 X10'3 (0-0.9); EOSINOPHILS % (AUTO) 8.4 % (0-6); HEMATOCRIT 31.2 % (42.0-52.0); HEMOGLOBIN 10.8 g/dl (14.0-17.9); LYMPHOCYTES # (AUTO) 1.4 X10'3 (1.1-4.8); LYMPHOCYTES % (AUTO) 20.3 % (21-51); MEAN CORPUSCULAR HEMOGLOBIN 30.6 PG (27.0-31.0); MEAN CORPUSCULAR HGB CONC 34.4 g/dL (33.0-36.5); MEAN CORPUSCULAR VOLUME 88.8 FL (78-98); MEAN PLATELET VOLUME 7.1 FL (7.4-10.4); MONOCYTES # (AUTO) 0.8 X10'3 (0-0.9); MONOCYTES % (AUTO) 11.8 % (2-12); NEUTROPHILS % (AUTO) 59.2 % (42-75); PLATELET COUNT 239 X10'3 (140-440); RED BLOOD COUNT 3.52 X10'6 (4.70-6.10); WHITE BLOOD COUNT 6.8 X10'3 (4.5-11.0)
[2018-11-22 06:00] VITALS: BP 153/69
[2018-11-22 06:00] LABS: ALANINE AMINOTRANSFERASE 20 U/L (12-78); ALBUMIN 2.4 G/DL (3.4-5.0); ALBUMIN/GLOBULIN RATIO 0.6 (1.1-1.5); ALKALINE PHOSPHATASE 84 IU/L (46-116); ANION GAP 8 (8-16); ASPARTATE AMINO TRANSFERASE 17 U/L (10-37); BILIRUBIN,TOTAL 0.2 MG/DL (0.1-1.0); BLOOD UREA NITROGEN 32 MG/DL (7-18); BUN/CREATININE RATIO 16.8 (5.4-32.0); CALCIUM 8.4 MG/DL (8.5-10.1); CHLORIDE 106 MMOL/L (99-107); CREATININE 1.91 MG/DL (0.60-1.10); GLUCOSE 92 MG/DL (70-104); MAGNESIUM 1.8 MG/DL (1.5-2.4); PHOSPHORUS 4.1 MG/DL (2.3-4.5); SODIUM 140 MMOL/L (135-145); TOTAL CARBON DIOXIDE 26.1 MMOL/L (24-32); TOTAL PROTEIN 6.1 G/DL (6.4-8.2); eGFR 34 ML/MIN
--- NOTE | 2018-11-22 06:20 | NUR ---
Patient in room PCU 3015. I have received report from EM Hernandez and had the opportunity to ask questions and assume patient care. Patient is resting comfortably at this time and in no apparent distress on 1L NC. Call light and items of frequent use in reach of patient.
--- NOTE | 2018-11-22 06:21 | NUR ---
Problems reprioritized. Patient report given, questions answered & plan of care reviewed with Patrica STRICKLAND and Juancho STRICKLAND.
--- NOTE | 2018-11-22 06:33 | NUR ---
Patient in room PCU 3015. I have received report from EM Hernandez and had the opportunity to ask questions and assume patient care.Pt resting comfortably at this time, 1 liter of oxygen and need to be weaned of oxygen today. Will continue to monitor.
[2018-11-22] MEDS: K and/or MAG REPLACEMENT MC SCH (07:45)
[2018-11-22] MEDS: budesonide 0.5mg/2ml UD nebule IH SCH ×2 (07:58→19:54)
[2018-11-22] MEDS: furosemide 20MG tablet PO SCH ×2 (07:59→19:23)
[2018-11-22] MEDS: aspirin 81mg tablet.DR PO SCH (07:59)
[2018-11-22] MEDS: famotidine 20mg tablet PO SCH ×2 (07:59→19:23)
[2018-11-22] MEDS: vitamin D (cholecalciferol) 1,000 unit tablet PO SCH (07:59)
[2018-11-22] MEDS: tamsulosin 0.4mg capsule PO SCH (07:59)
[2018-11-22] MEDS: lactobacillus rhamnosus 10,000 MMU CELLS/CAPSULE PO SCH ×2 (07:59→19:23)
[2018-11-22] MEDS: heparin, porcine 5000 units/ml vial SQ SCH ×2 (08:00→19:24)
[2018-11-22] MEDS: atorvastatin 20mg tablet PO SCH (08:00)
[2018-11-22] MEDS: calcium carbonate/vitamin D3 tablet PO SCH (08:00)
[2018-11-22] MEDS: azithromycin 250mg tablet PO SCH (08:00)
[2018-11-22] MEDS: CefTRIAXone/D5W-Rocephin 1gm 50 ML IV SCH (08:03)
[2018-11-22 11:00] VITALS: BP 95/62
[2018-11-22 15:00] VITALS: BP 138/64
[2018-11-22 18:00] VITALS: BP 143/77
--- NOTE | 2018-11-22 18:27 | NUR ---
Problems reprioritized. Patient report given, questions answered & plan of care reviewed with EM Burden. Patient just finished eating dinner and is resting comfortably at this time. Call light and items of frequent use in reach of patient.
--- NOTE | 2018-11-22 18:41 | NUR ---
Patient in room PCU 3015. I have received report from Patrica RN and EM Dawkins and had the opportunity to ask questions and assume patient care.
[2018-11-22 22:00] VITALS: BP 137/66
[2018-11-22] MEDS: acetaminophen 325mg tablet PO PRN (22:25)
[2018-11-23 02:00] VITALS: BP 139/70
[2018-11-23] MEDS: ipratropium 0.5 MG/2.5ML nebule NEB SCH (02:58)
[2018-11-23] MEDS: albuterol 2.5 MG/3 ML nebule NEB SCH ×3 (02:58→11:50)
[2018-11-23 05:32] LABS: BASOPHILS % (AUTO) 0.2 % (0-1); EOSINOPHILS # (AUTO) 0.5 X10'3 (0-0.9); EOSINOPHILS % (AUTO) 7.7 % (0-6); HEMATOCRIT 33.4 % (42.0-52.0); HEMOGLOBIN 11.2 g/dl (14.0-17.9); LYMPHOCYTES # (AUTO) 1.5 X10'3 (1.1-4.8); LYMPHOCYTES % (AUTO) 24.8 % (21-51); MEAN CORPUSCULAR HEMOGLOBIN 29.7 PG (27.0-31.0); MEAN CORPUSCULAR HGB CONC 33.5 g/dL (33.0-36.5); MEAN CORPUSCULAR VOLUME 88.7 FL (78-98); MEAN PLATELET VOLUME 7.1 FL (7.4-10.4); MONOCYTES # (AUTO) 0.6 X10'3 (0-0.9); MONOCYTES % (AUTO) 9.7 % (2-12); NEUTROPHILS # (AUTO) 3.5 X10'3 (1.8-7.7); NEUTROPHILS % (AUTO) 57.6 % (42-75); PLATELET COUNT 250 X10'3 (140-440); RED BLOOD COUNT 3.77 X10'6 (4.70-6.10); RED CELL DISTRIBUTION WIDTH 14.4 % (11.5-14.5); WHITE BLOOD COUNT 6.1 X10'3 (4.5-11.0)
[2018-11-23 06:00] VITALS: BP 176/76
[2018-11-23 06:09] LABS: ALANINE AMINOTRANSFERASE 23 U/L (12-78); ALBUMIN 2.6 G/DL (3.4-5.0); ALBUMIN/GLOBULIN RATIO 0.7 (1.1-1.5); ALKALINE PHOSPHATASE 92 IU/L (46-116); ANION GAP 9 (8-16); ASPARTATE AMINO TRANSFERASE 16 U/L (10-37); BILIRUBIN,TOTAL 0.2 MG/DL (0.1-1.0); BLOOD UREA NITROGEN 35 MG/DL (7-18); BUN/CREATININE RATIO 16.1 (5.4-32.0); CALCIUM 8.9 MG/DL (8.5-10.1); CHLORIDE 105 MMOL/L (99-107); CREATININE 2.18 MG/DL (0.60-1.10); GLUCOSE 93 MG/DL (70-104); MAGNESIUM 1.9 MG/DL (1.5-2.4); PHOSPHORUS 4.3 MG/DL (2.3-4.5); POTASSIUM 4.1 MMOL/L (3.5-5.1); SODIUM 140 MMOL/L (135-145); TOTAL CARBON DIOXIDE 26.2 MMOL/L (24-32); TOTAL PROTEIN 6.6 G/DL (6.4-8.2); eGFR 29 ML/MIN
--- NOTE | 2018-11-23 06:37 | NUR ---
Problems reprioritized. Patient report given, questions answered & plan of care reviewed with EM Machado.
[2018-11-23 06:45] VITALS: BP 151/72
[2018-11-23] MEDS: budesonide 0.5mg/2ml UD nebule IH SCH (07:55)
[2018-11-23] MEDS: heparin, porcine 5000 units/ml vial SQ SCH (08:00)
[2018-11-23] MEDS: K and/or MAG REPLACEMENT MC SCH (08:00)
[2018-11-23] MEDS: vitamin D (cholecalciferol) 1,000 unit tablet PO SCH (08:01)
[2018-11-23] MEDS: azithromycin 250mg tablet PO SCH (08:02)
[2018-11-23] MEDS: tamsulosin 0.4mg capsule PO SCH (08:02)
[2018-11-23] MEDS: aspirin 81mg tablet.DR PO SCH (08:02)
[2018-11-23] MEDS: furosemide 20MG tablet PO SCH (08:02)
[2018-11-23] MEDS: calcium carbonate/vitamin D3 tablet PO SCH (08:02)
[2018-11-23] MEDS: famotidine 20mg tablet PO SCH (08:03)
[2018-11-23] MEDS: atorvastatin 20mg tablet PO SCH (08:03)
[2018-11-23] MEDS: CefTRIAXone/D5W-Rocephin 1gm 50 ML IV SCH (08:04)
[2018-11-23] MEDS: lactobacillus rhamnosus 10,000 MMU CELLS/CAPSULE PO SCH (08:04)
[2018-11-23] MEDS: acetaminophen 325mg tablet PO PRN (09:54)
[2018-11-23] MEDS ORDERED: LEVO500T2 PO (09:56)
--- NOTE | 2018-11-23 11:00 | NUR ---
Pt fell in stairway per physical therapy while working with them. Dr Brice notified.
--- NOTE | 2018-11-23 13:07 | NUR ---
Pt discharged home with friend Christina. 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 He had some blood in his urine this AM and discharge was held, also had some difficulty on stairs with Phys. Ther. and difficulty getting up from chair. He refused to go to Rehab which was encouraged greatly. Phys Therapy worked with him again and said at home he is able to get around better with his equipment and when they watched him up from chair with specific tactics he was able to get up well. Pt will follow up with Dr Hu if blood in urine persists. Pt says this happened in the past and it was from antibiotics and it was easily fixed and he does not want to stay in hospital for that reason. IV taken out, tele off, all belongings taken from room. Pt will follow up with pcp. Meds called into [facility].
== END 2018-11-23 13:07 | disposition home or self-care (01) | DRG 871 ==
LOC: ER 14:48 → PCU 3S 20:51 → CMPBEDREQ 11-20 19:44
PROVIDERS: ADMIT Family Medicine; ATTEND Family Medicine
DX: A41.9 Sepsis, unspecified organism (principal); J18.1 Lobar pneumonia, unspecified organism; J96.00 Acute respiratory failure, unspecified whether with hypoxia or hypercapnia; J44.0 Chronic obstructive pulmonary disease with (acute) lower respiratory infection; J44.1 Chronic obstructive pulmonary disease with (acute) exacerbation; N39.0 Urinary tract infection, site not specified; D64.9 Anemia, unspecified; E78.00 Pure hypercholesterolemia, unspecified; Z96.643 Presence of artificial hip joint, bilateral; Z60.2 Problems related to living alone; E78.5 Hyperlipidemia, unspecified; I12.9 Hypertensive chronic kidney disease with stage 1 through stage 4 chronic kidney disease, or unspecified chronic kidney disease; N18.9 Chronic kidney disease, unspecified; I73.9 Peripheral vascular disease, unspecified; K21.9 Gastro-esophageal reflux disease without esophagitis; N40.0 Benign prostatic hyperplasia without lower urinary tract symptoms; Z85.46 Personal history of malignant neoplasm of prostate; Z80.51 Family history of malignant neoplasm of kidney; I25.2 Old myocardial infarction; Z87.891 Personal history of nicotine dependence; Z82.49 Family history of ischemic heart disease and other diseases of the circulatory system
CPT/HCPCS: 36415; 71045; 80053; 80061; 81001; 82150; 83036; 83605; 83690; 83735; 83880; 84100; 84145; 84484; 85025; 85610; 85730; 87040; 87070; 87088; 87502; 87503; 93005; 93306; 94640; 94760; 96365; 96366; 97116; 97161; 97530; 99285; G0378; J0456; J0696; J1644; J7030; J7626

== ENCOUNTER 2019-03-02 16:05 | Emergency (ER) | payer MEDICARE, OTHER ==
[~2019-03-02] VITALS: Ht 185.4 cm; Wt 97.7 kg
[~2019-03-02 16:05] MED LIST changes: -ALBU8.5H8 IH; -CYAN-19 PO; -PRE5T; -VITE1000C PO
[2019-03-02 19:22] VITALS: BP 159/70
== END 2019-03-02 19:35 | disposition home or self-care (01) ==
LOC: ER 16:07
DX: S00.83XA Contusion of other part of head, initial encounter (principal); E78.00 Pure hypercholesterolemia, unspecified; I10 Essential (primary) hypertension; I25.2 Old myocardial infarction; Z98.61 Coronary angioplasty status; Z60.2 Problems related to living alone; Z79.82 Long term (current) use of aspirin; Z79.899 Other long term (current) drug therapy; W18.39XA Other fall on same level, initial encounter; Y93.89 Activity, other specified; Y92.89 Other specified places as the place of occurrence of the external cause; Y99.8 Other external cause status
CPT/HCPCS: 70450; 70486; 99284

== ENCOUNTER 2019-05-21 08:06 | Emergency (ER) | payer MEDICARE, OTHER ==
[~2019-05-21] VITALS: Ht 185.4 cm; Wt 97.0 kg
[2019-05-21 08:09] VITALS: BP 133/65
[2019-05-21] MEDS ORDERED: AMOX500C2 PO (08:42)
== END 2019-05-21 08:57 | disposition home or self-care (01) ==
LOC: ER 08:06
DX: H66.91 Otitis media, unspecified, right ear (principal); E78.00 Pure hypercholesterolemia, unspecified; I25.2 Old myocardial infarction; I12.9 Hypertensive chronic kidney disease with stage 1 through stage 4 chronic kidney disease, or unspecified chronic kidney disease; N18.9 Chronic kidney disease, unspecified; Z98.61 Coronary angioplasty status; Z60.2 Problems related to living alone; Z79.82 Long term (current) use of aspirin; Z79.899 Other long term (current) drug therapy
CPT/HCPCS: 99283

== ENCOUNTER 2019-06-04 11:57 | Emergency (ER) | payer MEDICARE, OTHER ==
[~2019-06-04] VITALS: Ht 185.4 cm; Wt 94.0 kg
[~2019-06-04 11:57] MED LIST changes: +AMOX500C2 PO
[2019-06-04] MEDS ORDERED: ipratropium/albuterol 3ml nebule NEB ONE (12:10)
[2019-06-04] MEDS ORDERED: normal saline 1000ML IV soln IVB ONE (12:10)
[2019-06-04] MEDS ORDERED: methylPREDNISolone sod succ 125mg/2ml vial IV ONE (12:10)
[2019-06-04] MEDS ORDERED: normal saline 1000ML IV soln IV ONE (12:40)
[2019-06-04 12:41] LABS: BASOPHILS % (AUTO) 0.5 % (0-1); EOSINOPHILS # (AUTO) 0.1 X10'3 (0-0.9); EOSINOPHILS % (AUTO) 0.9 % (0-6); HEMATOCRIT 36.8 % (42.0-52.0); HEMOGLOBIN 12.3 g/dl (14.0-17.9); LYMPHOCYTES # (AUTO) 1.3 X10'3 (1.1-4.8); LYMPHOCYTES % (AUTO) 12.7 % (21-51); MEAN CORPUSCULAR HEMOGLOBIN 30.7 PG (27.0-31.0); MEAN CORPUSCULAR HGB CONC 33.5 g/dL (33.0-36.5); MEAN CORPUSCULAR VOLUME 91.6 FL (78-98); MEAN PLATELET VOLUME 7.7 FL (7.4-10.4); MONOCYTES # (AUTO) 0.9 X10'3 (0-0.9); MONOCYTES % (AUTO) 8.7 % (2-12); NEUTROPHILS # (AUTO) 7.8 X10'3 (1.8-7.7); NEUTROPHILS % (AUTO) 77.2 % (42-75); PLATELET COUNT 180 X10'3 (140-440); RED BLOOD COUNT 4.02 X10'6 (4.70-6.10); RED CELL DISTRIBUTION WIDTH 14.3 % (11.5-14.5); WHITE BLOOD COUNT 10.1 X10'3 (4.5-11.0)
--- NOTE | 2019-06-04 12:52 | NUR ---
CRISTOPHER MONSALVE INFORMED OF RED STREAK RIGHT LEG FROM ANKLE TO KNEE RIGHT LATERAL ANKLE WITH OPEN WOUND UNDER BANDAID
[2019-06-04 12:54] LABS: ALANINE AMINOTRANSFERASE 20 U/L (12-78); ALBUMIN 3.2 G/DL (3.4-5.0); ALBUMIN/GLOBULIN RATIO 0.9 (1.1-1.5); ALKALINE PHOSPHATASE 94 IU/L (46-116); ANION GAP 7 (8-16); ASPARTATE AMINO TRANSFERASE 15 U/L (10-37); BILIRUBIN,TOTAL 0.9 MG/DL (0.1-1.0); BLOOD UREA NITROGEN 34 MG/DL (7-18); BUN/CREATININE RATIO 15.9 (5.4-32.0); CALCIUM 8.5 MG/DL (8.5-10.1); CHLORIDE 106 MMOL/L (99-107); CREATININE 2.14 MG/DL (0.60-1.10); GLUCOSE 91 MG/DL (70-104); POTASSIUM 4.1 MMOL/L (3.5-5.1); SODIUM 141 MMOL/L (135-145); TOTAL CARBON DIOXIDE 27.7 MMOL/L (24-32); TOTAL PROTEIN 6.9 G/DL (6.4-8.2); eGFR 30 ML/MIN
--- NOTE | 2019-06-04 13:13 | NUR ---
ANDRES REQUESTING TYLENOL FOR MILD RODRÍGUEZ
[2019-06-04 13:17] LABS: CLARITY,URINE CLEAR (Clear); COLOR,URINE YELLOW (Yellow); GLUCOSE, URINE NEGATIVE (Neg); KETONES,URINE NEGATIVE (Neg); LEUKOCYTE ESTERASE ,URINE NEGATIVE (Neg); NITRITES, URINE NEGATIVE (Neg); OCCULT BLOOD,URINE NEGATIVE (Neg); PH,URINE 7.5 (4.8-8.0); PROTEIN,URINE 30 mg/dl (Neg); UROBILINOGEN,URINE 0.2 E.U/dL (0.2-1.0)
[2019-06-04] MEDS ORDERED: acetaminophen 325mg tablet PO ONE (13:20)
[2019-06-04 13:29] LABS: UA COLLECTION TYPE URINAL
[2019-06-04 13:31] LABS: BACTERIA,URINE NONE SEEN /HPF (Neg); RBC,URINE 0-2 /HPF (0-2); SQUAMOUS EPITHELIAL CELL,UR NONE SEEN /LPF (FEW); WBC,URINE 0-4 /HPF (0-4)
[2019-06-04] MEDS ORDERED: CEPH250T PO (15:23)
[2019-06-04 15:28] VITALS: BP 135/81
== END 2019-06-04 15:40 | disposition home or self-care (01) ==
LOC: ER 11:57
DX: I12.9 Hypertensive chronic kidney disease with stage 1 through stage 4 chronic kidney disease, or unspecified chronic kidney disease (principal); N18.9 Chronic kidney disease, unspecified; L03.115 Cellulitis of right lower limb; E78.00 Pure hypercholesterolemia, unspecified; J44.9 Chronic obstructive pulmonary disease, unspecified; Z98.61 Coronary angioplasty status; Z60.2 Problems related to living alone; Z79.82 Long term (current) use of aspirin; Z79.899 Other long term (current) drug therapy
CPT/HCPCS: 36415; 71045; 80053; 81001; 83605; 84145; 85025; 87040; 93005; 93970; 94640; 96374; 96375; 99284; J2930; J7030; 94760

== ENCOUNTER 2020-03-21 14:15 | Emergency (ER) | payer MEDICARE, OTHER ==
[~2020-03-21] VITALS: Ht 185.4 cm; Wt 95.5 kg
[~2020-03-21 14:15] MED LIST changes: -AMOX500C2 PO
[2020-03-21 14:28] VITALS: BP 127/62
[2020-03-21 15:13] LABS: BASOPHILS % (AUTO) 0.4 % (0-1); EOSINOPHILS # (AUTO) 0.3 X10'3 (0-0.9); EOSINOPHILS % (AUTO) 4.4 % (0-6); HEMATOCRIT 37.7 % (42.0-52.0); HEMOGLOBIN 12.7 g/dl (14.0-17.9); LYMPHOCYTES # (AUTO) 1.7 X10'3 (1.1-4.8); LYMPHOCYTES % (AUTO) 23.8 % (21-51); MEAN CORPUSCULAR HGB CONC 33.7 g/dL (33.0-36.5); MEAN CORPUSCULAR VOLUME 91.8 FL (78-98); MEAN PLATELET VOLUME 7.3 FL (7.4-10.4); MONOCYTES # (AUTO) 0.6 X10'3 (0-0.9); MONOCYTES % (AUTO) 7.7 % (2-12); NEUTROPHILS # (AUTO) 4.7 X10'3 (1.8-7.7); NEUTROPHILS % (AUTO) 63.7 % (42-75); PLATELET COUNT 222 X10'3 (140-440); RED BLOOD COUNT 4.11 X10'6 (4.70-6.10); RED CELL DISTRIBUTION WIDTH 14.6 % (11.5-14.5); WHITE BLOOD COUNT 7.3 X10'3 (4.5-11.0)
[2020-03-21 15:40] LABS: ALANINE AMINOTRANSFERASE 28 U/L (12-78); ALBUMIN 3.3 G/DL (3.4-5.0); ALBUMIN/GLOBULIN RATIO 0.8 (1.1-1.5); ALKALINE PHOSPHATASE 91 IU/L (46-116); ANION GAP 8 (8-16); ASPARTATE AMINO TRANSFERASE 22 U/L (10-37); BILIRUBIN,TOTAL 0.7 MG/DL (0.1-1.0); BLOOD UREA NITROGEN 42 MG/DL (7-18); CALCIUM 8.8 MG/DL (8.5-10.1); CHLORIDE 104 MMOL/L (99-107); CREATININE 2.33 MG/DL (0.60-1.10); GLUCOSE 105 MG/DL (70-104); POTASSIUM 3.9 MMOL/L (3.5-5.1); SODIUM 140 MMOL/L (135-145); TOTAL CARBON DIOXIDE 28.4 MMOL/L (24-32); TOTAL PROTEIN 7.2 G/DL (6.4-8.2); eGFR 27 ML/MIN
[2020-03-21] MEDS ORDERED: AZIT-63 PO (16:13)
[2020-03-21] MEDS ORDERED: azithromycin 250mg tablet PO ONE (16:15)
== END 2020-03-21 16:25 | disposition home or self-care (01) ==
LOC: ER 14:17
DX: J20.9 Acute bronchitis, unspecified (principal); E78.00 Pure hypercholesterolemia, unspecified; I25.2 Old myocardial infarction; J44.9 Chronic obstructive pulmonary disease, unspecified; N18.9 Chronic kidney disease, unspecified; I12.9 Hypertensive chronic kidney disease with stage 1 through stage 4 chronic kidney disease, or unspecified chronic kidney disease; Z85.9 Personal history of malignant neoplasm, unspecified; Z98.61 Coronary angioplasty status; Z79.82 Long term (current) use of aspirin; Z79.2 Long term (current) use of antibiotics; Z79.899 Other long term (current) drug therapy
CPT/HCPCS: 36415; 71045; 80053; 83880; 84145; 85025; 99284